=== PATIENT | male | born 1980 | race Caucasian/White ===

== ENCOUNTER → 2018-03-13 03:05 | Outpatient (CLI) | payer OTHER, SELFPAY ==
--- NOTE | 2018-03-13 10:40 | DI.REPORT_ITS ---
SYMPTOM/DIAGNOSIS: BACK PAIN, M54.9, CHRONIC LBP RADIATING TO RT SIDE MRI LUMBAR SPINE: Comparison is made with 20 Apr 2014. T1, T2 and STIR sagittal, T1, T2 axial sequences were performed. The T12-L1 through L3-4 discs appear intact. There is mild to moderate broad-based disc bulging at L4-5. No focal herniation is seen. There is a tiny central disc protrusion at L5-S1. No significant facet degenerative changes. No central canal stenosis is seen. The marrow signal appears normal. The aorta is normal in diameter. The conus medullaris appears intact. IMPRESSION: Stable disc bulging at L4-5. Stable tiny central disc protrusion at L5-S1 No new abnormality is seen.
== END ==
PROVIDERS: PCP Family Medicine; Visit Provider Family Medicine
DX: M54.5 Low back pain (principal); M51.27 Other intervertebral disc displacement, lumbosacral region
CPT/HCPCS: 72148

== ENCOUNTER 2020-07-03 11:16 | Outpatient (REF) | payer OTHER, SELFPAY ==
[2020-07-03 21:25] LABS: HCT 45.8 % (40.0-50.0); HGB 15.4 g/dL (13.5-17.5); MCH 33.2 pg (27.0-33.0); MCHC 33.6 % (32.0-36.0); MCV 98.7 fL (80-95); MPV 9.6 fL (8.0-11.0); Platelet Count 371 10^3/uL (130-400); RBC 4.64 10^6/uL (4.36-5.78); RDW 12.8 % (11.8-14.1); WBC 6.14 10^3/uL (4.4-10.8)
[2020-07-03 21:38] LABS: ALT 50 U/L (16-63); AST 33 U/L (15-37); Albumin 4.1 g/dL (3.4-5.0); Alkaline Phosphatase 26 U/L (46-116); Anion Gap 8.9 mmol/L (3-11); BUN 12 mg/dL (7-18); Bilirubin, Total 0.3 mg/dL (0.2-1.0); CO2 25.1 mmol/L (21.0-32.0); Calcium 9.5 mg/dL (8.5-10.1); Calculated LDL 135 mg/dL (<100); Chloride 103 mmol/L (98-107); Cholesterol 211 mg/dL (<200); Glucose 93 mg/dL (74-106); HDL Cholesterol 45 mg/dL (40-60); Potassium 4.6 mmol/L (3.5-5.1); Sodium 137 mmol/L (136-145); Total Protein 7.6 g/dL (6.4-8.2); Triglyceride 157 mg/dL (<150)
== END 2020-07-03 11:36 ==
LOC: NCHCN 11:16
PROVIDERS: PCP Family Medicine; Visit Provider Nurse Practitioner Community Health
DX: I25.10 Atherosclerotic heart disease of native coronary artery without angina pectoris (principal)
CPT/HCPCS: 80053; 80061; 85027

== ENCOUNTER 2021-08-03 19:29 | Outpatient (REF) | payer OTHER, SELFPAY ==
[2021-08-03 15:48] LABS: Anion Gap 11.5 mmol/L (3-11); BUN 13 mg/dL (7-18); CO2 26.5 mmol/L (21.0-32.0); Calcium 9.4 mg/dL (8.5-10.1); Chloride 101 mmol/L (98-107); Glucose 100 mg/dL (74-106); Potassium 4.4 mmol/L (3.5-5.1); Sodium 139 mmol/L (136-145)
== END 2021-08-03 19:30 | disposition home or self-care (01) ==
LOC: NCHCN 19:29
PROVIDERS: PCP Family Medicine; Visit Provider Nurse Practitioner Family
DX: I25.10 Atherosclerotic heart disease of native coronary artery without angina pectoris (principal); Z00.00 Encounter for general adult medical examination without abnormal findings
CPT/HCPCS: 80048

== ENCOUNTER 2023-04-15 17:56 | Outpatient (REF) | payer BC, SELFPAY ==
[2023-04-15 17:35] LABS: ALT 44 U/L (16-63); AST 35 U/L (15-37); Albumin 4.1 g/dL (3.4-5.0); Alkaline Phosphatase 31 U/L (46-116); Anion Gap 11.3 mmol/L (3-11); BUN 8 mg/dL (7-18); Bilirubin, Total 0.3 mg/dL (0.2-1.0); CO2 23.7 mmol/L (21.0-32.0); CREATININE 0.9 mg/dL (0.70-1.30); Calcium 9.9 mg/dL (8.5-10.1); Chloride 103 mmol/L (98-107); Estimated GFR 108.01 (mL/min/1.73m2); Glucose 101 mg/dL (74-106); Potassium 4.1 mmol/L (3.5-5.1); Sodium 138 mmol/L (136-145)
[2023-04-15 17:49] LABS: Calculated LDL 206 mg/dL (<100); Cholesterol 300 mg/dL (<200); HDL Cholesterol 49 mg/dL (40-60); Triglyceride 225 mg/dL (<150)
== END 2023-04-15 17:57 | disposition home or self-care (01) ==
LOC: NCHCN 17:56
PROVIDERS: PCP Family Medicine; Visit Provider Nurse Practitioner Family
DX: I10 Essential (primary) hypertension (principal); I25.10 Atherosclerotic heart disease of native coronary artery without angina pectoris; Z13.220 Encounter for screening for lipoid disorders
CPT/HCPCS: 80053; 80061